=== PATIENT | female | born 1995 | race African-American/Black ===

== ENCOUNTER 2016-05-29 10:36 | Emergency (ER) | payer MEDICAID ==
[2016-05-29] MEDS ORDERED: SODIUM CHLORIDE 0.9% 1,000 ML ONE (11:48)
[2016-05-29] MEDS ORDERED: ACETAMINOPHEN 325 MG TAB ONE (14:05)
== END 2016-05-29 15:09 | disposition home or self-care (01) ==
LOC: ER 10:36
DX: O21.1 Hyperemesis gravidarum with metabolic disturbance (principal); O23.12 Infections of bladder in pregnancy, second trimester; N89.8 Other specified noninflammatory disorders of vagina; R10.2 Pelvic and perineal pain
CPT/HCPCS: 36415; 80053; 81001; 83690; 84702; 85025; 87077; 87088; 87186; 87491; 87591; 87800; 96360; 96361